=== PATIENT | male | born 1990 | race Two or more races ===

== ENCOUNTER → 2017-10-23 | Day surgery (SDC) | payer BC ==
[~2017-10-23] VITALS: Ht 182.9 cm; Wt 121.1 kg
[~2017-10-23] MED LIST: ASPI1TAB31 PO; BUPIVACAINE-EPI 0.25%-1:200000 50 ML VIAL. ONE; CITA40TA12 PO; DEXAMETHASONE SOD PHOS 20 MG/5 ML VIAL. ONE; HYDROmorphone 2 MG/ML VIAL IV PRN; IV RINGERS,LACTATED 1000ML 1,000 ML IV SCH; KETOROLAC 30 MG/ML INJ FOR OR. INJ ONE; LIDOCAINE 1% PF 2 ML VIAL. ID PRN; LIDOCAINE 2% PF Vial for OR 5 ML VIAL. ONE; LORA10TA68 PO; MIDAZOLAM HCL/PF 2 MG/2 ML VIAL. ONE; MORPHINE SULFATE 2 MG/ML VIAL. IV PRN; ONDANSETRON PF 4 MG/2 ML VIAL. ONE; PROCHLORPERAZINE 10 MG/2 ML VIAL. IV PRN; PROPOFOL 20 ML IV ONE; RANI150T21 PO; SEVOFLURANE 31 TO 60 MINUTES. IH ONE; TERB250T11 PO; TOPI25TA52 PO; fentaNYL PF VIAL 100 MCG/2 ML VIAL IV PRN; fentaNYL PF VIAL 100 MCG/2 ML VIAL ONE; oxyCODONE/APAP 5/325 1 TAB TABLET PO PRN
--- NOTE | 2017-10-23 10:35 | PDOC4 ---
Operative Note Operative Note Date: 10/23/2017 Preoperative diagnosis: Umbilical hernia Postoperative diagnosis: Same Procedure: Open umbilical hernia repair Surgeon: Thai Specimen: Hernia contents and sac Dictation: Patient is a 27-year-old male is complained of a painful bulge at his umbilicus procedure of umbilical hernia repair was explained to the patient detail was benefits were also discussed including bleeding infection alternatives to this procedure also discussed with patient seemed understanding gave both verbal and written consent had procedure performed. Patient was taken to the operating room placed in supine position general anesthesia was initiated once patient was asleep and intubated his abdomen was prepped and draped usual sterile fashion using ChloraPrep. An area around the umbilicus was injected with quarter percent Marcaine with epinephrine incisions made with 15 blade scalpel at the top portion of the umbilicus this carried down through the subcutaneous tissues electrocautery by hemostasis hernia sac and contents were freed up from her attachments with electrocautery down to the fascia defect at that point the hernia sac and contents were excised sharply with electrocautery and sent for pathology. The hernia defect was then closed with a figure-of- eight 0 Vicryl suture the deep layer of the wound were closed with 3-0 Vicryl suture and the skin was approximate 4 septic or Monocryl Mastisol Steri-Strips and island dressing were applied patient was waken expanded in the operating room taken recovery in stable condition all sponge instrument needle counts listed as correct estimate blood loss 5 mL ALEX AZUL MD Oct 23, 2017 10:35
--- NOTE | 2017-10-23 10:36 | DISCH ---
DISCHARGE INSTRUCTIONS Condition on Discharge Condition on Discharge: Stable Activity After Discharge Activity Instructions for Disc: Avoid exertion Other activity instructions: no lifting more than 20 pounds for 2 weeks Diet after Discharge Diet after Discharge: Regular Wound Incision Care Other wound/incision instructi: May shower in 24 hours Contacting the DRMichael after DC Call your doctor for: Concerns you may have Follow-Up Follow up with: krista Azul in 2 weeks ALEX AZUL MD Oct 23, 2017 10:36
[2017-10-23 11:40] VITALS: BP 139/79
--- NOTE | 2017-10-27 14:08 | PATHOLOGY ---
[facility] Accession Number: [id number] . 01 Material submitted: . UMBILICAL HERNIA . 01 Clinical history: . Umbilical hernia . 02 Diagnosis: Segments of focal mesothelial-lined fibromembranous and fibroadipose tissue, umbilical hernia repair: - Hernia sac showing focal fibrosis and chronic inflammation. . (JPM:mml; 10/27/17) QL/10/27/2017 . 02 Electronically signed: . Rj Messer MD, Pathologist NPI- [id number] . 01 Gross description: . The specimen is received in formalin, labeled "Díaz, Jm, umbilical hernia" and consists of a saccular segment of pink-corbett membranous tissue encased with yellow adipose tissue measuring 5.5 x 3.5 x 1.5 cm. Sectioning reveals no nodules or mass lesions and patient access representative sections are submitted in A1. (SDY; 10/23/2017) SYU/SYU . 02 Microscopic: . Y . 02 Pathologist provided ICD-10: K42.9 . 02 CPT . 008815 Performed at: 01 [facility] [address], [place] [id number] MD Peter Byrnes MD Phone: [phone] Performed at: 02 [facility] [address], [place] [id number] MD Rj Messer MD Phone: [phone]
== END | disposition home or self-care (01) ==
LOC: SURG 08:53
PROVIDERS: ATTEND Surgery
DX: K42.9 Umbilical hernia without obstruction or gangrene (principal); G43.909 Migraine, unspecified, not intractable, without status migrainosus; F41.9 Anxiety disorder, unspecified; F32.9 Major depressive disorder, single episode, unspecified; K08.409 Partial loss of teeth, unspecified cause, unspecified class; Z83.3 Family history of diabetes mellitus; Z82.49 Family history of ischemic heart disease and other diseases of the circulatory system; Z81.8 Family history of other mental and behavioral disorders; Z82.61 Family history of arthritis; Z87.891 Personal history of nicotine dependence; Z72.89 Other problems related to lifestyle; Z79.899 Other long term (current) drug therapy
CPT/HCPCS: 49585; 88302; A7015; J0690; J1100; J1885; J2001; J2250; J2405; J2704; J3010; J7120